=== PATIENT | female | born 1995 ===

== ENCOUNTER 2016-07-05 15:19 | Emergency (ER) | payer SELFPAY ==
[2016-07-05 15:33] VITALS: BP 150/87
[2016-07-05 16:07] LABS: Basophils % (Auto) 0.3 % (0.0-1.8); Eosinophils % (Auto) 0.8 % (0.0-4.3); Hematocrit 34.2 % (30.3-42.9); Hemoglobin 10.8 gm/dl (10.1-14.3); Mean Corpuscular HGB Conc 32 % (30-34); Mean Corpuscular Hemoglobin 26 pg (28-32); Mean Corpuscular Volume 83 fl (79-97); Platelet Count 209 K/mm3 (140-440); Red Cell Distribution Width 14.1 % (13.2-15.2); White Blood Count 14.7 K/mm3 (4.5-11.0)
[2016-07-05 16:21] LABS: INR 0.98 (0.87-1.13)
[2016-07-05 16:25] LABS: Alanine Aminotransferase 19 units/L (7-56); Albumin 3.6 g/dL (3.9-5); Alkaline Phosphatase 64 units/L (35-129); Anion Gap 17 mmol/L; Bilirubin,Total 0.2 mg/dL (0.1-1.2); Blood Urea Nitrogen 7 mg/dL (7-17); Calcium 8.9 mg/dL (8.4-10.2); Carbon Dioxide 22 mmol/L (22-30); Chloride 101.3 mmol/L (98-107); Glucose 107 mg/dL (65-100); Potassium 3.4 mmol/L (3.6-5.0); Sodium 137 mmol/L (137-145); Total Protein 7.1 g/dL (6.3-8.2)
== END 2016-07-05 18:00 | disposition left against medical advice (07) ==
LOC: ED 15:19
DX: K08.89 Other specified disorders of teeth and supporting structures (principal); Z53.21 Procedure and treatment not carried out due to patient leaving prior to being seen by health care provider
CPT/HCPCS: 36415; 80053; 82140; 82805; 85025; 85610; 87040